=== PATIENT | male | born 1975 | race Caucasian/White ===

== ENCOUNTER 2016-11-12 07:16 | Outpatient (CLI) | payer OTHER ==
[2016-11-12] MEDS ORDERED: IOPAMIDOL-300 100 ML VIAL IVP ONE (08:40)
[2016-11-12] MEDS ORDERED: IOPAMIDOL-300 50 ML VIAL PO ONE (08:40)
--- NOTE | 2016-11-12 11:27 | CT Report ---
CT OF THE ABDOMEN AND PELVIS WITH CONTRAST: 11/12/2016 CLINICAL INDICATION: Left lower quadrant pain. TECHNIQUE: Axial CT images of the abdomen and pelvis were obtained with 100 mL of Isovue-300 intraven ously as well as oral contrast. FINDINGS: Limited evaluation of the lung bases is unremarkable. ABDOMEN: The liver, spleen, pancreas, kidneys and adrenal glands are unremarkable. The gallbladder is not dilated. No bowel dilatation, free gas, or free fluid is present. No abdominal adenopathy is see n. PELVIS: The pelvic organs are unremarkable. Scattered sigmoid diverticulosis is seen, without CT evid ence of diverticulitis. The appendix is seen in the right lower quadrant, and is normal in caliber. N o pelvic adenopathy or free fluid is present. The osseous structures demonstrate degenerative changes and changes of previous left hip replacement. IMPRESSION: SIGMOID DIVERTICULOSIS, WITHOUT CT EVIDENCE OF DIVERTICULITIS. NO EVIDENT ETIOLOGY FOR P ATIENT'S LEFT LOWER QUADRANT PAIN. In accordance with CT protocol optimization, one or more of the following dose reduction techniques w ere utilized for this exam: automated exposure control, adjustment of mA and/or KV based on patient size, or use of iterative reconstructive technique. JOB #: [id number] EXT JOB #:[id number]
== END 2016-11-12 07:17 | disposition home or self-care (01) ==
LOC: DI 07:16
PROVIDERS: ATTEND Surgery
DX: R10.32 Left lower quadrant pain (principal); K57.30 Diverticulosis of large intestine without perforation or abscess without bleeding
CPT/HCPCS: 74177; Q9967

== ENCOUNTER 2016-12-02 11:35 | Day surgery (SDC) | payer OTHER ==
[2016-12-02] MEDS ORDERED: DEXTROSE 5% 1,000 ML IV ONE (12:17)
[2016-12-02] MEDS ORDERED: LACTATED RINGERS 1,000 ML IV ONE (12:33)
[2016-12-02] MEDS ORDERED: MIDAZOLAM 2 MG/2 ML VIAL IVP ONE (12:35)
[2016-12-02] MEDS ORDERED: fentaNYL 100 MCG/2 ML VIAL IVP ONE (12:35)
[2016-12-02 13:55] VITALS: BP 110/70
== END 2016-12-02 11:36 | disposition home or self-care (01) ==
LOC: SDS 11:35
PROVIDERS: ATTEND Internal Medicine
PROC: 0DB98ZX Excision of Duodenum, Via Natural or Artificial Opening Endoscopic, Diagnostic (ICD-10-PCS; 2016-12-02)
PROC: 0DB58ZX Excision of Esophagus, Via Natural or Artificial Opening Endoscopic, Diagnostic (ICD-10-PCS; 2016-12-02)
PROC: 0DBP8ZX Excision of Rectum, Via Natural or Artificial Opening Endoscopic, Diagnostic (ICD-10-PCS; principal; 2016-12-02 12:30)
PROC: 0DBE8ZX Excision of Large Intestine, Via Natural or Artificial Opening Endoscopic, Diagnostic (ICD-10-PCS; 2016-12-02 12:30)
DX: R19.7 Diarrhea, unspecified (principal); R13.10 Dysphagia, unspecified; K21.9 Gastro-esophageal reflux disease without esophagitis; I10 Essential (primary) hypertension; I25.10 Atherosclerotic heart disease of native coronary artery without angina pectoris; K43.9 Ventral hernia without obstruction or gangrene; K62.5 Hemorrhage of anus and rectum; K57.30 Diverticulosis of large intestine without perforation or abscess without bleeding; K22.2 Esophageal obstruction
CPT/HCPCS: 43239; 45380; J7120; 88305

== ENCOUNTER 2017-01-04 08:43 | Day surgery (SDC) | payer OTHER ==
[2017-01-04] MEDS ORDERED: LACTATED RINGERS 1,000 ML IV ONE (08:51)
[2017-01-04] MEDS ORDERED: fentaNYL 100 MCG/2 ML VIAL IVP ONE (10:42)
[2017-01-04] MEDS ORDERED: MIDAZOLAM 2 MG/2 ML VIAL IVP ONE (10:42)
[2017-01-04 11:35] VITALS: BP 100/68
== END 2017-01-04 08:44 | disposition home or self-care (01) ==
LOC: SDS 08:43
PROVIDERS: ATTEND Surgery
PROC: 0DJD8ZZ Inspection of Lower Intestinal Tract, Via Natural or Artificial Opening Endoscopic (ICD-10-PCS; principal; 2017-01-04 09:30)
DX: Z12.11 Encounter for screening for malignant neoplasm of colon (principal); R10.32 Left lower quadrant pain; K57.30 Diverticulosis of large intestine without perforation or abscess without bleeding; K64.8 Other hemorrhoids; I10 Essential (primary) hypertension; F41.9 Anxiety disorder, unspecified; I25.10 Atherosclerotic heart disease of native coronary artery without angina pectoris; E78.5 Hyperlipidemia, unspecified; Z79.82 Long term (current) use of aspirin
CPT/HCPCS: 45378; J7120

== ENCOUNTER 2018-01-05 22:07 | Emergency (ER) | payer OTHER ==
--- NOTE | 2018-01-05 22:35 | ED Physician Documentation ---
PD HPI CHEST PAIN - Stated complaint Stated Complaint: CP/HBP/NAVA/SOA - Chief complaint Chief Complaint: Cardiac - History obtained from History obtained from: Patient - History of Present Illness Timing - onset: Today (has had recurrent headaches right posterior, has seen neurologist with occipital injections twice without consistent improvement. headache today, then felt pressure in chest, took BP and noted it was quite elevated.) Timing - onset during: Light activity Timing - duration: Hours (few) Timing - details: Gradual onset, Still present Quality: Pressure, Aching Location: Substernal Radiation: No: Jaw, Back Improved by: No: Rest Worsened by: No: Exertion, Inspiration, Movement, Palpation Associated symptoms: Shortness of air Similar symptoms before: Diagnosis (had MD age 28 with angioplasty (no stent). Had some chest pain episodes about 2 years ago and had nuclear stress done which was normal. He has noted some dyspnea on exertion the past month or so, but did not have chest pressure/pain at the time.) Recently seen: Not recently seen Review of Systems Constitutional: denies: Fever, Chills, Myalgias, Fatigue Nose: denies: Rhinorrhea / runny nose, Congestion Throat: denies: Sore throat Cardiac: reports: Chest pain / pressure. denies: Palpitations Respiratory: denies: Dyspnea, Cough GI: denies: Abdominal Pain, Nausea, Vomiting, Diarrhea Musculoskeletal: reports: Neck pain. denies: Back pain Neurologic: reports: Generalized weakness. denies: Focal weakness, Numbness, Near syncope Endocrine: denies: Weight gain, Easy bruising / bleeding PD PAST MEDICAL HISTORY - Past Medical History Cardiovascular: Hypertension, MD Respiratory: Sleep apnea, CPAP use Endocrine/Autoimmune: None GI: GERD, Other : None HEENT: None Psych: Depression Musculoskeletal: Osteoarthritis Derm: None - Past Surgical History General: Colonoscopy Ortho: Hip replacement Cardiovascular: Cardiac catheterization - Present Medications Home Medications: Ambulatory Orders Medication Instructions Recorded Confirmed Alprazolam [Xanax] 0.5 mg PO DAILY 11/30/16 01/04/17 Amlodipine Besylate 10 mg PO DAILY 11/30/16 01/04/17 Aspirin 81 mg PO DAILY 11/30/16 01/04/17 Atorvastatin Calcium [Lipitor] 80 mg PO DAILY 11/30/16 01/04/17 Carvedilol 25 mg PO BID 11/30/16 01/04/17 Citalopram Hydrobromide [Celexa] 40 mg PO DAILY 11/30/16 01/04/17 Lisinopril 20 mg PO BID 11/30/16 01/04/17 Modafinil 100 mg PO DAILY 11/30/16 01/04/17 hydroCHLOROthiazide 25 mg PO DAILY 11/30/16 01/04/17 [Hydrochlorothiazide] HYDROcod/ACETAM 5/325 [[place] 5/325] 1 tab PO Q6H PRN #20 tablet 01/06/18 Nitroglycerin 0.4 mg SL ONCE PRN #1 bottle 01/06/18 Promethazine [Phenergan] 25 mg PO Q6H PRN #20 tab 01/06/18 - Allergies Allergies/Adverse Reactions: Allergies Allergy/AdvReac Type Severity Reaction Status Date / Time No Known Drug Allergies Allergy Verified 01/05/18 22:18 - Living Situation Living Situation: reports: With spouse/s.o. Living Arrangement: reports: At home - Family History Family history: reports: CAD PD ED PE NORMAL - Vitals Vital signs reviewed: Yes - General General: Alert and oriented X 3, No acute distress, Well developed/nourished - HEENT HEENT: Atraumatic, PERRL, EOMI, Ears normal, Moist mucous membranes, Pharynx benign - Neck Neck: Supple, no meningeal sign, No bony TTP, No adenopathy, Other (some tenderness right lateral lower neck. No redness, rash nor sores. ) - Cardiac Cardiac: RRR, No murmur - Respiratory Respiratory: Clear bilaterally, Other (no chestwall tenderness per se. ) - Abdomen Abdomen: Soft, Non tender - Back Back: No CVA TTP - Derm Derm: Normal color, Warm and dry, No rash - Extremities Extremities: No tenderness to palpate, Normal ROM s pain, No edema, No calf tenderness / cord - Neuro Neuro: Alert and oriented X 3, No motor deficit, Normal speech Results - Vitals Vitals: Vital Signs - 24 hr 01/05/18 01/05/18 01/05/18 22:13 23:11 23:18 Temperature 36.3 C L Heart Rate 112 H 106 H 118 H Respiratory 18 16 16 Rate Blood Pressure 191/121 H 158/101 H 142/90 H O2 Saturation 95 94 97 01/05/18 01/06/18 23:56 00:10 Temperature Heart Rate 94 94 Respiratory 17 16 Rate Blood Pressure 164/94 H 159/95 H O2 Saturation 94 94 Oxygen O2 Source Room air - Labs Labs: Laboratory Tests 01/05/18 01/05/18 01/05/18 22:26 22:26 22:26 WBC 5.8 RBC 4.89 Hgb 16.0 Hct 45.5 MCV 93.1 MCH 32.7 H MCHC 35.2 RDW 13.2 Plt Count 238 MPV 8.0 Neut # (Auto) 2.5 Lymph # (Auto) 2.6 [place] # (Auto) 0.4 Eos # (Auto) 0.2 Baso # (Auto) 0.0 Absolute Nucleated RBC 0.01 Nucleated RBC % 0.2 Sodium 138 Potassium 3.9 Chloride 102 Carbon Dioxide 27 Anion Gap 9.0 BUN 18 Creatinine 0.9 Estimated GFR (MDRD) 92 Glucose 116 H Calcium 9.1 Magnesium Total Bilirubin 0.6 AST 37 ALT 36 Alkaline Phosphatase 62 Troponin I < 0.04 B-Natriuretic Peptide Total Protein 7.0 Albumin 4.4 Globulin 2.6 Albumin/Globulin Ratio 1.7 Lipase 42 01/05/18 01/05/18 22:26 22:26 WBC RBC Hgb Hct MCV MCH MCHC RDW Plt Count MPV Neut # (Auto) Lymph # (Auto) [place] # (Auto) Eos # (Auto) Baso # (Auto) Absolute Nucleated RBC Nucleated RBC % Sodium Potassium Chloride Carbon Dioxide Anion Gap BUN Creatinine Estimated GFR (MDRD) Glucose Calcium Magnesium 2.9 H Total Bilirubin AST ALT Alkaline Phosphatase Troponin I B-Natriuretic Peptide 14 Total Protein Albumin Globulin Albumin/Globulin Ratio Lipase PD MEDICAL DECISION MAKING - ED course Complexity details: reviewed results, re-evaluated patient (feeling better with NTG (helped BP and chest discomfort) as well as Toradol/compazine for the headache. ), considered differential (h/o CAD with normal nuclear stress 2 years ago. Having headaches and seeing neurologist about them. He has had pain episodes that are worse and then BP goes up. He then has pressure feeling in chest, 2-3 episodes so far. Consider if the B{ is causing increased workload and thus anginal symptoms. He says he has had some exertional dyspnea the past month or so. No exertional CP. ), d/w patient - Sepsis Event Vital Signs: Vital Signs - 24 hr 08/08/18 08/08/18 08/08/18 22:13 23:11 23:18 Temperature 36.3 C L Heart Rate 112 H 106 H 118 H Respiratory 18 16 16 Rate Blood Pressure 191/121 H 158/101 H 142/90 H O2 Saturation 95 94 97 01/05/18 01/06/18 23:56 00:10 Temperature Heart Rate 94 94 Respiratory 17 16 Rate Blood Pressure 164/94 H 159/95 H O2 Saturation 94 94 Oxygen O2 Source Room air Departure - Departure Disposition: 01 Home, Self Care Clinical Impression: Right-sided headache, Elevated blood pressure reading, Chest pressure Clinical Impression: (Ruled Out): Myocardial infarction Condition: Stable Record reviewed to determine appropriate education?: Yes Instructions: ED Chest Pain NonCardiac, ED Cephalgia Unspecified Prescriptions: HYDROcod/ACETAM 5/325 [[place] 5/325] 1 tab PO Q6H PRN #20 tablet PRN Reason: Pain Nitroglycerin 0.4 mg SL ONCE PRN #1 bottle PRN Reason: Chest Pain Promethazine [Phenergan] 25 mg PO Q6H PRN #20 tab PRN Reason: Nausea / Vomiting Comments: Use Tylenol or ibuprofen if needed for mild headaches. Add hydrocodone and promethazine if needed for worse headache considering that may be migraine type. Your headache does seem to lead to elevated blood pressure which was then causing some chest discomfort. The question would be whether there is some underlying heart flow limitation. Follow-up with your primary care to see if they want to do any stress imaging tests for the heart. Use nitroglycerin sublingually if needed for chest pressure episodes. Discharge Date/Time: 01/06/18 00:20
[2018-01-05 22:49] LABS: ALBUMIN 4.4 g/dL (3.2-5.5); ALBUMIN/GLOBULIN RATIO 1.7 (1.0-2.2); BILIRUBIN,TOTAL 0.6 mg/dL (0.2-1.0); CALCIUM 9.1 mg/dL (8.5-10.3); CREATININE 0.9 mg/dL (0.6-1.2)
[2018-01-05 22:51] LABS: BASOPHILS % (AUTO) 0.8 %; EOSINOPHILS # (AUTO) 0.2 10^3/uL (0.0-0.7); EOSINOPHILS % (AUTO) 3.6 %; LYMPHOCYTES # (AUTO) 2.6 10^3/uL (1.5-3.5); LYMPHOCYTES % (AUTO) 44.8 %; MEAN CORPUSCULAR HEMOGLOBIN 32.7 pg (27.0-31.0); MEAN CORPUSCULAR HGB CONC 35.2 g/dL (32.0-36.0); MEAN CORPUSCULAR VOLUME 93.1 fL (80.0-94.0); MONOCYTES # (AUTO) 0.4 10^3/uL (0.0-1.0); MONOCYTES % (AUTO) 7.3 %; NEUTROPHILS # (AUTO) 2.5 10^3/uL (1.5-6.6); NEUTROPHILS % (AUTO) 43.5 %; PLT - PLATELET COUNT 238 10^3/uL (130-450); RED BLOOD COUNT 4.89 10^6/uL (4.70-6.10); RED CELL DISTRIBUTION WIDTH 13.2 % (12.0-15.0); WHITE BLOOD COUNT 5.8 x10^3/uL (4.8-10.8)
--- NOTE | 2018-01-05 22:58 | XRAY Report ---
Procedure Date: 01/05/2018 Accession Number: [id number] / [id number] Procedure: XR - Chest 2 View X-Ray CPT Code: 28341 FULL RESULT: EXAM: CHEST RADIOGRAPHY EXAM DATE: 01/05/2018 10:35 PM. CLINICAL HISTORY: Chest pain. COMPARISON: None. TECHNIQUE: 2 views. FINDINGS: Lungs/Pleura: No focal opacities evident. No pleural effusion. No pneumothorax. Normal volumes. Mediastinum: Heart and mediastinal contours are unremarkable. Other: None. IMPRESSION: No acute intrathoracic plain film abnormality. RADIA
[2018-01-05] MEDS ORDERED: PROCHLORPERAZINE 10 MG/2 ML VIAL IVP STA (22:59)
[2018-01-05] MEDS ORDERED: KETOROLAC 60 MG/2 ML VIAL IVP STA (23:00)
[2018-01-05] MEDS ORDERED: NITROGLYCERIN SL 0.4 MG TABLET SL STA (23:00)
[2018-01-06 01:02] VITALS: BP 159/95
== END 2018-01-06 00:20 | disposition home or self-care (01) ==
LOC: ED 22:07
DX: R51 Headache (principal); I10 Essential (primary) hypertension; R07.89 Other chest pain; R00.0 Tachycardia, unspecified; I25.2 Old myocardial infarction; Z96.649 Presence of unspecified artificial hip joint; Z79.82 Long term (current) use of aspirin
CPT/HCPCS: 36415; 71046; 80053; 83690; 83735; 83880; 84484; 85025; 93005; 96374; 96375; 99284; A9270

== ENCOUNTER 2020-05-10 12:02 | Outpatient (CLI) | payer OTHER ==
[2020-05-10 18:16] LABS: BASOPHILS % (AUTO) 0.7 %; EOSINOPHILS # (AUTO) 0.1 10^3/uL (0.0-0.7); EOSINOPHILS % (AUTO) 1.4 %; HCT - HEMATOCRIT 43.4 % (42.0-52.0); HGB - HEMOGLOBIN 14.5 g/dL (14.0-18.0); LYMPHOCYTES # (AUTO) 1.7 10^3/uL (1.5-3.5); LYMPHOCYTES % (AUTO) 41.1 %; MEAN CORPUSCULAR HEMOGLOBIN 32.5 pg (27.0-31.0); MEAN CORPUSCULAR HGB CONC 33.4 g/dL (32.0-36.0); MEAN CORPUSCULAR VOLUME 97.3 fL (80.0-94.0); MEAN PLATELET VOLUME 10.6 fL (7.4-11.4); MONOCYTES # (AUTO) 0.3 10^3/uL (0.0-1.0); MONOCYTES % (AUTO) 7.2 %; NEUTROPHILS % (AUTO) 49.4 %; PLT - PLATELET COUNT 222 10^3/uL (130-450); RED BLOOD COUNT 4.46 10^6/uL (4.70-6.10); RED CELL DISTRIBUTION WIDTH 13.2 % (12.0-15.0); WHITE BLOOD COUNT 4.1 x10^3/uL (4.8-10.8)
[2020-05-10 18:32] LABS: ALBUMIN 4.8 g/dL (3.2-5.5); ALBUMIN/GLOBULIN RATIO 1.8 (1.0-2.2); ALKALINE PHOSPHATASE 61 IU/L (42-121); ALT ALANINE AMINOTRANSFERASE 37 IU/L (10-60); AST ASPARTATE AMINOTRANSFERASE 34 IU/L (10-42); BUN - BLOOD UREA NITROGEN 14 mg/dL (6-20); CALCIUM 9.6 mg/dL (8.5-10.3); CARBON DIOXIDE - CO2 25 mmol/L (21-32); CHLORIDE 105 mmol/L (101-111); CHOL/HDL RATIO 4.3 (<5.0); CHOLESTEROL 160 mg/dL; GFR - MDRD 80 (>89); GLUCOSE 102 mg/dL (70-100); HDL CHOLESTEROL 37 mg/dL; LDL CHOLESTEROL,CALCULATED 96 mg/dL; LDL/HDL RATIO 2.6 (<3.6); POTASSIUM 3.7 mmol/L (3.5-5.0); SODIUM 141 mmol/L (135-145); TOTAL PROTEIN 7.5 g/dL (6.7-8.2); TRIGLYCERIDES 133 mg/dL; VLDL CHOLESTEROL 27 mg/dL
[2020-05-10 18:38] LABS: THYROID STIMULATING HORMONE 1.06 uIU/mL (0.34-5.60)
== END 2020-05-10 23:59 | disposition home or self-care (01) ==
LOC: LAB.WCP 12:02
PROVIDERS: ATTEND Nurse Practitioner Family
DX: I10 Essential (primary) hypertension (principal); E78.5 Hyperlipidemia, unspecified; I25.810 Atherosclerosis of coronary artery bypass graft(s) without angina pectoris
CPT/HCPCS: 36415; 80053; 80061; 83721; 84443; 85025

== ENCOUNTER 2020-05-14 14:31 | Outpatient (CLI) | payer OTHER ==
[2020-05-14 19:10] LABS: FOLATE 7.4 ng/mL (5.90 - >24.8)
== END 2020-05-14 23:59 | disposition home or self-care (01) ==
LOC: LAB.WCP 14:31
PROVIDERS: ATTEND Nurse Practitioner Family
DX: D64.9 Anemia, unspecified (principal)
CPT/HCPCS: 36415; 82607; 82746

== ENCOUNTER 2020-11-25 13:42 | Emergency (ER) | payer OTHER ==
[2020-11-25] MEDS ORDERED: SODIUM CHLORIDE 0.9% 1,000 ML IV STA (14:30)
[2020-11-25] MEDS ORDERED: ONDANSETRON 4 MG/2 ML VIAL IVP STA (14:31)
[2020-11-25 14:44] LABS: BASOPHILS # (AUTO) 0.1 10^3/uL (0.0-0.1); BASOPHILS % (AUTO) 0.9 %; EOSINOPHILS # (AUTO) 0.1 10^3/uL (0.0-0.7); EOSINOPHILS % (AUTO) 1.7 %; HGB - HEMOGLOBIN 14.7 g/dL (14.0-18.0); LYMPHOCYTES # (AUTO) 1.7 10^3/uL (1.5-3.5); LYMPHOCYTES % (AUTO) 30.8 %; MEAN CORPUSCULAR HGB CONC 35.9 g/dL (32.0-36.0); MEAN CORPUSCULAR VOLUME 91.9 fL (80.0-94.0); MEAN PLATELET VOLUME 10.2 fL (7.4-11.4); MONOCYTES # (AUTO) 0.5 10^3/uL (0.0-1.0); MONOCYTES % (AUTO) 9.5 %; NEUTROPHILS # (AUTO) 3.1 10^3/uL (1.5-6.6); NEUTROPHILS % (AUTO) 56.9 %; PLT - PLATELET COUNT 229 10^3/uL (130-450); RED BLOOD COUNT 4.46 10^6/uL (4.70-6.10); RED CELL DISTRIBUTION WIDTH 12.9 % (12.0-15.0); WHITE BLOOD COUNT 5.4 x10^3/uL (4.8-10.8)
[2020-11-25] MEDS ORDERED: LACTATED RINGERS 1,000 ML IV STA (14:47)
--- NOTE | 2020-11-25 14:47 | ED Physician Documentation ---
PD HPI ALTERED MENTAL STATUS - Stated complaint Stated Complaint: N/V DIZZY - Chief complaint Chief Complaint: Neuro - History obtained from History obtained from: Patient, Family - Additional information Additional information: 45-year-old gentleman with history of NH and hypertension has been working quite a bit in the heat the last few days. 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 Throughout yesterday when he was trying to take it easy but was still in a hot environments, and last night did not sleep much and now presents with lethargy and nausea and generalized ill feeling. No specific pain or chest pain or trouble breathing. Review of Systems Ten Systems: 10 systems reviewed and negative Constitutional: denies: Fever, Chills Eyes: reports: Reviewed and negative PD PAST MEDICAL HISTORY - Past Medical History Cardiovascular: Hypertension, NH Respiratory: Sleep apnea, CPAP use Endocrine/Autoimmune: None GI: GERD, Other : None HEENT: None Psych: Depression Musculoskeletal: Osteoarthritis Derm: None - Past Surgical History Past Surgical History: Yes General: Colonoscopy Ortho: Hip replacement Cardiovascular: Cardiac catheterization - Present Medications Home Medications: Ambulatory Orders Medication Instructions Recorded Confirmed Amlodipine Besylate 10 mg PO DAILY 11/30/16 11/25/20 Aspirin 81 mg PO DAILY 11/30/16 11/25/20 Atorvastatin Calcium [Lipitor] 80 mg PO DAILY 11/30/16 11/25/20 Citalopram Hydrobromide [Celexa] 40 mg PO DAILY 11/30/16 11/25/20 carvediloL [Carvedilol] 25 mg PO BID 11/30/16 11/25/20 hydroCHLOROthiazide 25 mg PO DAILY 11/30/16 11/25/20 [Hydrochlorothiazide] lisinopriL [Lisinopril] 20 mg PO BID 11/30/16 11/25/20 modafiniL [Modafinil] 100 mg PO DAILY 11/30/16 11/25/20 Nitroglycerin 0.4 mg SL ONCE PRN #1 bottle 01/06/18 11/25/20 Promethazine [Phenergan] 25 mg PO Q6H PRN #20 tab 01/06/18 11/25/20 Citalopram [CeleXA] 40 mg PO DAILY 11/25/20 11/25/20 - Allergies Allergies/Adverse Reactions: Allergies Allergy/AdvReac Type Severity Reaction Status Date / Time No Known Drug Allergies Allergy Verified 11/25/20 13:52 - Social History Does the pt smoke?: No Smoking Status: Former smoker Does the pt drink ETOH?: Yes Does the pt have substance abuse?: No - Immunizations Immunizations are current?: Yes - POLST Patient has POLST: No PD ED PE NORMAL - Vitals Vital signs reviewed: Yes - General General: Alert and oriented X 3, Other (Very slightly slow to answer questions. States he has not been sweating the last few days.) - HEENT HEENT: PERRL, EOMI - Neck Neck: Supple, no meningeal sign, No bony TTP - Cardiac Cardiac: RRR, No murmur - Respiratory Respiratory: No respiratory distress, Clear bilaterally - Abdomen Abdomen: Non tender - Back Back: No CVA TTP, No spinal TTP - Derm Derm: Normal color, Warm and dry - Extremities Extremities: No edema, No calf tenderness / cord - Neuro Neuro: Alert and oriented X 3, Normal speech Results - Vitals Vitals: Vital Signs - 24 hr 11/25/20 11/25/20 11/25/20 13:46 14:47 15:30 Temperature 38.1 C H Heart Rate 96 75 Heart Rate [ 87 Sitting] Heart Rate [ 94 Standing] Heart Rate [ 80 Supine] Respiratory 16 15 Rate Blood Pressure 136/93 H 134/86 H Blood Pressure 134/93 H [Sitting] Blood Pressure 138/93 H [Standing] Blood Pressure 136/85 H [Supine] O2 Saturation 95 93 Oxygen O2 Source Room air - EKG (time done) 1431 Rate: Rate (enter#) (81) Rhythm: NSR [place]: Normal Intervals: Normal [place], Other (IVCD) QRS: Normal Ischemia: Non specific changes. No: ST elevation c/w ischemia, ST depression - Labs Labs: Laboratory Tests 11/25/20 11/25/20 14:24 14:24 WBC 5.4 RBC 4.46 L Hgb 14.7 Hct 41.0 L MCV 91.9 MCH 33.0 H MCHC 35.9 RDW 12.9 Plt Count 229 MPV 10.2 Neut # (Auto) 3.1 Lymph # (Auto) 1.7 [place] # (Auto) 0.5 Eos # (Auto) 0.1 Baso # (Auto) 0.1 Absolute Nucleated RBC 0.00 Nucleated RBC % 0.0 Sodium 132 L Potassium 2.6 L Chloride 94 L Carbon Dioxide 23 Anion Gap 15.0 H BUN 17 Creatinine 1.1 Estimated GFR (MDRD) 72 L Glucose 105 H Calcium 9.0 Total Bilirubin 0.8 AST 43 H ALT 41 Alkaline Phosphatase 56 Total Protein 7.5 Albumin 4.8 Globulin 2.7 Albumin/Globulin Ratio 1.8 Lipase 34 PD MEDICAL DECISION MAKING - ED course ED course: 45-year-old gentleman presents with heat related illness. After 2 L of fluid and some potassium supplementation for hypokalemia 2.6 he was feeling much better. Temperature rechecked and orally was 98.7 for me. Departure - Departure Disposition: 01 Home, Self Care Clinical Impression: Heat exhaustion Qualifiers: Encounter type: initial encounter Qualified Code(s): T67.5XXA - Heat exhaustion, unspecified, initial encounter Condition: Good Record reviewed to determine appropriate education?: Yes Instructions: ED Exhaustion Heat Comments: Drink plenty of fluids tonight make sure to use something with electrolytes such as Gatorade. No physical activity I will stay in the course place you can. Return for worsening symptoms. Follow-up with your primary care physician, next available appointment.
[2020-11-25 15:00] LABS: ALBUMIN 4.8 g/dL (3.2-5.5); ALBUMIN/GLOBULIN RATIO 1.8 (1.0-2.2); BILIRUBIN,TOTAL 0.8 mg/dL (0.2-1.0); CREATININE 1.1 mg/dL (0.6-1.2); POTASSIUM 2.6 mmol/L (3.5-5.0); TOTAL PROTEIN 7.5 g/dL (6.7-8.2)
[2020-11-25] MEDS ORDERED: POTASSIUM CHLOR 10 MEQ/100 ML 10 MEQ/100 ML BAG IV STA (15:14)
[2020-11-25] MEDS ORDERED: POTASSIUM CHLORIDE 20 MEQ TABLET PO STA (15:14)
[2020-11-25 16:18] VITALS: BP 131/80
== END 2020-11-25 16:18 | disposition home or self-care (01) ==
LOC: ED 13:42
DX: T67.5XXA Heat exhaustion, unspecified, initial encounter (principal); X30.XXXA Exposure to excessive natural heat, initial encounter; E87.6 Hypokalemia; I45.9 Conduction disorder, unspecified; I10 Essential (primary) hypertension; I25.2 Old myocardial infarction; Z79.82 Long term (current) use of aspirin; Z87.891 Personal history of nicotine dependence
CPT/HCPCS: 36415; 80053; 83690; 85025; 93005; 96374; 96375; 99284; A9270; J7120

== ENCOUNTER 2021-01-17 08:00 | Outpatient (CLI) | payer OTHER | END 2021-01-17 23:59 | disposition home or self-care (01) | LOC: LAB.N 08:00 | PROVIDERS: ATTEND Nurse Practitioner | DX: U07.1 COVID-19 (principal) ==

== ENCOUNTER 2021-03-12 08:00 | Outpatient (CLI) | payer OTHER ==
[2021-03-12 12:03] LABS: BILIRUBIN,URINE NEGATIVE (NEGATIVE); GLUCOSE, URINE (UA) NEGATIVE (NEGATIVE); KETONES,URINE (UA) NEGATIVE (NEGATIVE); LEUKOCYTE ESTERASE, URINE NEGATIVE (NEGATIVE); NITRITE,URINE NEGATIVE (NEGATIVE); OCCULT BLOOD,URINE NEGATIVE (NEGATIVE); PROTEIN,URINE NEGATIVE (NEGATIVE); UROBILINOGEN,URINE 0.2 (NORMAL) E.U./dL (NORMAL)
[2021-03-12 12:05] LABS: BASOPHILS % (AUTO) 0.9 %; EOSINOPHILS # (AUTO) 0.1 10^3/uL (0.0-0.7); EOSINOPHILS % (AUTO) 2.4 %; HCT - HEMATOCRIT 41.4 % (42.0-52.0); HGB - HEMOGLOBIN 14.1 g/dL (14.0-18.0); LYMPHOCYTES # (AUTO) 2.1 10^3/uL (1.5-3.5); LYMPHOCYTES % (AUTO) 45.7 %; MEAN CORPUSCULAR HEMOGLOBIN 31.8 pg (27.0-31.0); MEAN CORPUSCULAR HGB CONC 34.1 g/dL (32.0-36.0); MEAN CORPUSCULAR VOLUME 93.2 fL (80.0-94.0); MEAN PLATELET VOLUME 10.3 fL (7.4-11.4); MONOCYTES # (AUTO) 0.4 10^3/uL (0.0-1.0); NEUTROPHILS % (AUTO) 42.6 %; PLT - PLATELET COUNT 210 10^3/uL (130-450); RED BLOOD COUNT 4.44 10^6/uL (4.70-6.10); RED CELL DISTRIBUTION WIDTH 13.5 % (12.0-15.0); WHITE BLOOD COUNT 4.6 x10^3/uL (4.8-10.8)
[2021-03-12 12:06] LABS: CLARITY,URINE CLOUDY (CLEAR)
[2021-03-12 12:44] LABS: AMORPHOUS SEDIMENT,UR Few /LPF; BACTERIA,URINE Rare /HPF (None Seen); RBC,URINE None Seen /HPF (0-5); SQUAMOUS EPITHELIAL CELL,UR NONE SEEN (<= Few); WBC,URINE 0-3 /HPF (0-3)
[2021-03-12 13:27] LABS: THYROID STIMULATING HORMONE 2.82 uIU/mL (0.34-5.60)
[2021-03-12 13:28] LABS: ESTIMATED AVERAGE GLUCOSE 111 mg/dL (70-100); HEMOGLOBIN A1c% 5.5 % (4.27-6.07)
[2021-03-12 13:30] LABS: ALBUMIN 4.2 g/dL (3.2-5.5); ALBUMIN/GLOBULIN RATIO 1.5 (1.0-2.2); ALKALINE PHOSPHATASE 57 IU/L (42-121); ALT ALANINE AMINOTRANSFERASE 46 IU/L (10-60); AST ASPARTATE AMINOTRANSFERASE 41 IU/L (10-42); BILIRUBIN,TOTAL 0.5 mg/dL (0.2-1.0); BUN - BLOOD UREA NITROGEN 17 mg/dL (6-20); CALCIUM 8.8 mg/dL (8.5-10.3); CARBON DIOXIDE - CO2 24 mmol/L (21-32); CHLORIDE 105 mmol/L (101-111); CHOL/HDL RATIO 5.6 (<5.0); CHOLESTEROL 167 mg/dL; CREATININE 0.8 mg/dL (0.6-1.2); CRP - C-REACTIVE PROTEIN 1.4 mg/dL (0-1.0); GFR - MDRD 103 (>89); GLUCOSE 113 mg/dL (70-100); HDL CHOLESTEROL 30 mg/dL; LDL CHOLESTEROL,CALCULATED 85 mg/dL; LDL/HDL RATIO 2.8 (<3.6); POTASSIUM 3.2 mmol/L (3.5-5.0); SODIUM 139 mmol/L (135-145); TRIGLYCERIDES 259 mg/dL; URIC ACID 5.6 mg/dL (2.6-7.2); VLDL CHOLESTEROL 52 mg/dL
[2021-03-12 13:38] LABS: RHEUMATOID FACTOR NEGATIVE (Negative)
[2021-03-14 12:52] LABS: DNA (DS) ANTIBODY 2 IU/mL
[2021-03-14 15:36] LABS: ANA SCREEN NEGATIVE (NEGATIVE)
[2021-03-14 18:22] LABS: CYCLIC CITRULL PEPTIDE CCP IGG <16 UNITS
== END 2021-03-12 23:59 | disposition home or self-care (01) ==
LOC: LAB.WCP 08:00
PROVIDERS: ATTEND Nurse Practitioner
DX: I10 Essential (primary) hypertension (principal); E78.5 Hyperlipidemia, unspecified; R53.83 Other fatigue; M13.0 Polyarthritis, unspecified
CPT/HCPCS: 36415; 80053; 80061; 81001; 83036; 83721; 84443; 84550; 85025; 85651; 86038; 86140; 86200; 86225; 86430; 87086

== ENCOUNTER 2021-10-06 08:00 | Outpatient (CLI) | payer OTHER | END 2021-10-06 23:59 | disposition home or self-care (01) | LOC: LAB.N 08:00 | PROVIDERS: ATTEND Registered Nurse | DX: R05.1 Acute cough (principal); Z20.822 Contact with and (suspected) exposure to COVID-19 ==